=== PATIENT | female | born 1980 ===

== ENCOUNTER 2018-07-24 13:20 | Outpatient (CLI) | payer BC ==
--- NOTE | 2018-07-24 14:45 | MRI ---
MR of the pelvis with and without contrast INDICATION: History of inflammatory spondyloarthropathy of the sacral region Contrast: 16 cc of MultiHance COMPARISON: Prior CT of the abdomen and pelvis from prior radiology associates dated September 23, 2016 an d February 06, 2010. FINDINGS: The patient's known mild/moderate bilateral symmetric sacroiliitis is largely stable. There is some mild reactive osteitis seen involving the sacrum and adjacent ilium. There is mild enhancement seen on the postcontrast series involving the sacrum and ilium. There is some mild reacti ve osteitis involving the vertebral margins of L5. There are bilateral follicular cysts. The uterus , bladder, rectum and perirectal soft tissues are unremarkable appearing. There is an IUD seen within the central aspect of the uterus. There are several mildly prominent lymph nodes within the inguinal regions bilaterally. No free fluid is evident. IMPRESSION: 1. Likely stable mild to moderate bilateral symmetric sacroiliitis. 2. Mild reactive osteitis involving the vertebral body margins of L5.
[2018-07-24] MEDS ORDERED: Gadobenate Dimeglumine 529 MG/1 ML (20ML VIAL) ONE (15:38)
== END 2018-07-24 13:21 | disposition home or self-care (01) ==
LOC: BICMRI 13:20
DX: M54.9 Dorsalgia, unspecified (principal); G89.29 Other chronic pain; M46.1 Sacroiliitis, not elsewhere classified; M46.26 Osteomyelitis of vertebra, lumbar region
CPT/HCPCS: 72197; A9577